=== PATIENT | male | born 1965 | race Caucasian/White ===

== ENCOUNTER 2019-04-03 09:44 | Day surgery (SDC) | payer OTHER ==
[2019-03-31 15:49] LABS: BASOPHILS % (AUTO) 0.4 % (0.0-5.0); EOSINOPHILS % (AUTO) 1.2 % (0.0-8.0); HEMATOCRIT 55.8 % (42-54); LYMPHOCYTES % (AUTO) 33.4 % (21.0-51.0); MEAN CORPUSCULAR HEMOGLOBIN 31.1 pg (27.0-33.0); MEAN CORPUSCULAR HGB CONC 33.7 g/dL (32.0-36.0); MEAN CORPUSCULAR VOLUME 92.2 fL (79-99); MONOCYTES % (AUTO) 8.9 % (3.0-13.0); NEUTROPHILS % (AUTO) 56.1 % (40.0-77.0); NUCLEATED RED BLOOD CELLS 0.1 % (0.0-0.19); PLATELET COUNT (AUTO) 200 K/uL (130-400); RED BLOOD CELL COUNT(AUTO) 6.05 MIL/uL (4.50-6.20); RED CELL DISTRIBUTION WIDTH 13.4 % (11.0-15.5); WHITE BLOOD COUNT (AUTO) 7.5 K/uL (4.8-10.8)
[2019-03-31 15:55] LABS: CREATININE 1.1 mg/dL (0.5-1.5); POTASSIUM 4.4 mmol/L (3.5-5.1)
[2019-03-31 16:06] LABS: INR 1.04 (0.85-1.15); PARTIAL THROMBOPLASTIN TIME 32.2 SEC (26.3-35.5); PROTHROMBIN TIME 10.9 SEC (9.6-11.6)
[2019-03-31 16:15] LABS: APPEARANCE,URINE CLEAR (CLEAR); BILIRUBIN,URINE NEGATIVE (NEGATIVE); COLOR,URINE YELLOW (YELLOW); GLUCOSE, URINE (UA) >=1000 mg/dL (NEGATIVE); KETONES,URINE NEGATIVE (NEGATIVE); LEUKOCYTE ESTERASE ,URINE NEGATIVE (NEGATIVE); NITRATE,URINE NEGATIVE (NEGATIVE); OCCULT BLOOD,URINE NEGATIVE (NEGATIVE); PROTEIN,URINE NEGATIVE (NEGATIVE); UROBILINOGEN,URINE 0.2 mg/dL (0.2-1.0)
[2019-03-31 16:20] VITALS: BP 142/81
[~2019-04-03] VITALS: Ht 180.3 cm; Wt 89.4 kg
[2019-04-03] VITALS (19 sets, daily range): BP systolic 62–145; BP diastolic 41–87
[~2019-04-03 09:44] MED LIST: CEFTRIAXONE SODIUM 1 GM IVP ONE; CLON0.5T12 PO; DAPA1TAB PO; ESCI10TA PO; FLUT16H NASAL; GENTAMICIN 80 MG/NS 100 ML PB 100 ML IV PRN; LEVO500T89 PO; TAMS-1 PO
[2019-04-03] MEDS ORDERED: CEFTRIAXONE SODIUM 1 GM ONE (13:02)
[2019-04-03] MEDS ORDERED: LACTATED RINGERS 1000ML 1,000 ML IV ONE (13:02)
[2019-04-03] MEDS ORDERED: PROPOFOL 10 MG/ML 20ML VIAL IV ONE (13:58)
[2019-04-03] MEDS ORDERED: LIDOCAINE PF 2% 5ML ABBOJECT ONE (13:58)
[2019-04-03] MEDS ORDERED: FENTANYL CITRATE PF 50 MCG/1 ML 2ML VIAL ONE (13:58)
[2019-04-03] MEDS ORDERED: EPHEDRINE SULFATE 50 MG/ML AMPULE ONE ×2 (15:03→16:13)
== END 2019-04-03 17:40 | disposition home or self-care (01) ==
LOC: DAH 09:44 → EDSEX 14:00 → DAH 17:40
PROVIDERS: ATTEND Urology
DX: R97.20 Elevated prostate specific antigen [PSA] (principal); R39.89 Other symptoms and signs involving the genitourinary system; J45.909 Unspecified asthma, uncomplicated; F41.9 Anxiety disorder, unspecified; E11.9 Type 2 diabetes mellitus without complications; F17.210 Nicotine dependence, cigarettes, uncomplicated; F15.90 Other stimulant use, unspecified, uncomplicated; Z79.2 Long term (current) use of antibiotics; Z79.899 Other long term (current) drug therapy; Z72.89 Other problems related to lifestyle; Z98.890 Other specified postprocedural states; Z82.49 Family history of ischemic heart disease and other diseases of the circulatory system
CPT/HCPCS: 36415 ×2; 52000; 55700; 76942; 80048; 81003; 82948 ×2; 85025; 85610; 85730; 87088; 88305; 93005; 96365; A4358; A4600; A4649; J0696; J1580; J2001; J2704; J3010; J3490 ×2; J7120